=== PATIENT | female | born 1955 | race Caucasian/White ===

== ENCOUNTER 2020-05-14 16:53 | Emergency (ER) | payer MEDICARE, SELFPAY ==
--- NOTE | 2020-05-14 17:36 | RAD ---
EXAM: Chest PA and lateral: HISTORY: Cough and shortness of breath COMPARISON: None FINDINGS: Heart: Cardiomegaly Aorta: At the lower Pulmonary vessels: Normal Costophrenic angles: Costophrenic angles are clear. Lungs: Hyperinflation with chronic changes. Superimposed infiltrate in the left lung base is suspecte d. Pneumothorax: No pneumothorax Osseous structures: No osseous abnormalities IMPRESSION: 1. Atherosclerosis 2. Cardiomegaly. Infiltrate in the left lung base is suspected. Continued surveillance is recommended 3. COPD. Chronic lung parenchymal changes.
[2020-05-14] MEDS ORDERED: Azithromycin 250 MG TAB ONE (17:44)
[2020-05-14] MEDS ORDERED: Amoxicillin/Potassium Clav 875 MG TAB ONE (17:44)
[2020-05-14 17:53] LABS: ALT (SGPT) 21 U/L (8-55); AST (SGOT) 22 U/L (5-34); Albumin 4.2 g/dL (3.4-4.8); Alkaline Phosphatase 102 U/L (40-110); Anion Gap 16 mmol/L (10-20); BUN (Urea Nitrogen) 19 mg/dL (9.8-20.1); Bilirubin, Total 0.3 mg/dL (0.2-1.2); Calc. Creatinine Clearance 0 mL/min (70-130); Calcium 9.1 mg/dL (7.8-10.44); Carbon Dioxide 21 mmol/L (23-31); Chloride 106 mmol/L (98-107); Globulin 3.5 g/dL (2.4-3.5); Glucose 117 mg/dL (80-115); Potassium 3.4 mmol/L (3.5-5.1); Protein, Total 7.7 g/dL (5.8-8.1); Sodium 140 mmol/L (136-145)
[2020-05-14 17:57] LABS: Hemoglobin 14.5 g/dL (12.0-16.0); Mean Corpuscular HGB CONC 33.4 g/dL (32.0-36.0); Mean Corpuscular Hemoglobin 29.1 pg (27.0-31.0); Mean Platelet Volume 7.9 fL (7.4-10.4); Platelet Count 212 thou/uL (130-400); RBC Distribution Width 14.4 % (11.5-14.5); Red Blood Cell (RBC) Count 4.99 mill/uL (4.20-5.40); White Blood Cell (WBC) Count 6.5 thou/uL (4.8-10.8)
[2020-05-14 17:58] LABS: Eosinophils 1 % (0-10); Lymphocytes 5 % (21-51); MDiff Complete? YES; Monocytes 10 % (0-10); Neutrophil 63 % (42-75); Platelet Morphology Comment Appears Adequate; RBC Morphology Normal; Reactive Lymphocytes 21 % (0-10)
[2020-05-14 18:33] LABS: SARS-CoV-2 NAA Rapid Test DETECTED (NotDetected)
== END 2020-05-14 18:52 | disposition home or self-care (01) ==
LOC: MADERS 16:53
DX: U07.1 COVID-19 (principal); E78.5 Hyperlipidemia, unspecified; I10 Essential (primary) hypertension; E03.9 Hypothyroidism, unspecified; Z86.73 Personal history of transient ischemic attack (TIA), and cerebral infarction without residual deficits; M06.9 Rheumatoid arthritis, unspecified; E11.9 Type 2 diabetes mellitus without complications; Z79.4 Long term (current) use of insulin; Z79.899 Other long term (current) drug therapy
CPT/HCPCS: 0240U; 71046; 80053; 83880; 84443; 84484; 85025; 86140; 87040; 93005

== ENCOUNTER 2021-04-18 12:57 | Outpatient (CLI) | payer MEDICARE | END 2021-04-18 12:58 | disposition home or self-care (01) | LOC: MADLAB 12:57 → MADCT 12:58 | PROVIDERS: ATTEND Urology | DX: N13.30 Unspecified hydronephrosis (principal); N20.0 Calculus of kidney; N28.89 Other specified disorders of kidney and ureter | CPT/HCPCS: 74176 ==